=== PATIENT | male | born 2000 | race Caucasian/White ===

== ENCOUNTER 2024-02-17 10:06 | Emergency (ER) | payer BC, MEDICAID ==
[~2024-02-17] VITALS: Ht 185.4 cm; Wt 115.2 kg
[2024-02-17 10:11] VITALS: BP 165/96; PULSE 105; RESP 20; TEMP 99.4; O2SAT 98
[2024-02-17 10:56] LABS: BASOPHILS # (AUTO) 0.1 X10'3 (0-0.2); BASOPHILS % (AUTO) 0.7 % (0-1); EOSINOPHILS # (AUTO) 0.2 X10'3 (0-0.9); EOSINOPHILS % (AUTO) 2.4 % (0-6); HEMATOCRIT 43.3 % (42.0-52.0); HEMOGLOBIN 13.6 g/dl (14.0-17.9); LYMPHOCYTES # (AUTO) 1.8 X10'3 (1.1-4.8); MEAN CORPUSCULAR HEMOGLOBIN 18.3 PG (27.0-31.0); MEAN CORPUSCULAR HGB CONC 31.4 g/dL (33.0-36.5); MEAN CORPUSCULAR VOLUME 58.2 FL (78-98); MEAN PLATELET VOLUME 8.8 FL (7.4-10.4); MONOCYTES # (AUTO) 0.8 X10'3 (0-0.9); MONOCYTES % (AUTO) 9.3 % (2-12); NEUTROPHILS # (AUTO) 5.8 X10'3 (1.8-7.7); NEUTROPHILS % (AUTO) 66.6 % (42-75); PLATELET COUNT 295 X10'3 (140-440); RED BLOOD COUNT 7.44 X10'6 (4.70-6.10); RED CELL DISTRIBUTION WIDTH 16.8 % (11.5-14.5); WHITE BLOOD COUNT 8.7 X10'3 (4.5-11.0)
[2024-02-17 11:09] LABS: ANISOCYTOSIS 1+; HYPOCHROMASIA 2+; MICROCYTOSIS 3+; PLATELET ESTIMATE NORMAL; TARGET CELLS FEW; TEAR DROP CELLS FEW
[2024-02-17 11:10] LABS: ELLIPTOCYTES FEW
[2024-02-17 11:15] LABS: ALBUMIN 4.2 G/DL (3.4-5.0); ANION GAP 10 (8-16); BLOOD UREA NITROGEN 9 MG/DL (7-18); BUN/CREATININE RATIO 9.1 (10.0-20.0); CALCIUM 9.3 MG/DL (8.5-10.1); CHLORIDE 102 MMOL/L (99-107); CREATININE 0.99 MG/DL (0.60-1.10); GLUCOSE 138 MG/DL (70-104); POTASSIUM 3.6 MMOL/L (3.5-5.1); PRO BRAIN NATRIURETIC PEPTIDE < 30 PG/ML (0-125); SODIUM 138 MMOL/L (135-145); TOTAL CARBON DIOXIDE 26.3 MMOL/L (24-32); eCRCL 129 ML/MIN; eGFR > 90 ML/MIN
[2024-02-17] MEDS ORDERED: IBUP-1984 PO (12:16)
[2024-02-17] MEDS ORDERED: OMEP20CA16 PO (12:17)
[2024-02-17] MEDS ORDERED: LACT1CAP26 PO (12:17)
== END 2024-02-17 12:19 | disposition home or self-care (01) ==
LOC: ER 10:07
DX: R07.2 Precordial pain (principal)
CPT/HCPCS: 36415; 71045; 80048; 83880; 84484; 85008; 85025; 93005; 99285

== ENCOUNTER 2025-07-03 13:20 | Outpatient (CLI) | payer BC ==
[~2025-07-03 13:20] MED LIST: LACT1CAP26 PO; OMEP20CA16 PO
--- NOTE | 2025-07-03 14:29 | RADIOLOGY REPORT ---
CLINICAL INDICATION: CELLULITIS OF TOE TECHNIQUE: 3 radiographic views of the left foot were obtained. Comparison: DI FOOT, COMPLETE (3VW MIN) on DOS: 07/03/25 FINDINGS/IMPRESSION: There is no evidence of acute fracture or dislocation. Postsurgical changes are visualized in the 2nd, 3rd and 4th digits.
--- NOTE | 2025-07-03 14:29 | RADIOLOGY REPORT ---
CLINICAL INDICATION: CELLULITIS OF TOE TECHNIQUE: 3 radiographic views of the right foot were obtained. Comparison: DI FOOT, COMPLETE (3VW MIN) on DOS: 07/03/25 FINDINGS/IMPRESSION: There is no evidence of acute fracture or dislocation. Postsurgical changes are visualized in the 1st, 2nd, 3rd and 4th digits.
== END 2025-07-03 23:59 | disposition home or self-care (01) ==
LOC: RAD 13:20
PROVIDERS: ATTEND Family Medicine
DX: L03.031 Cellulitis of right toe (principal); Z98.890 Other specified postprocedural states
CPT/HCPCS: 73630